=== PATIENT | female | born 1990 | race Caucasian/White ===

== ENCOUNTER 2020-08-14 17:34 | Emergency (ER) | payer MEDICAID ==
[~2020-08-14] VITALS: Ht 167.6 cm; Wt 73.0 kg
[2020-08-14 19:57] LABS: BASOPHILS % 0.7 % (0.0-2.0); EOSINOPHILS % 1.7 % (0.0-5.0); HEMATOCRIT. 35.2 % (36.0-48.0); HEMOGLOBIN. 11.6 g/dL (12.0-16.0); LYMPHOCYTES % 37.8 % (20.0-50.0); MEAN CORPUSCULAR HEMOGLOBIN 28.3 pg (28.0-32.0); MEAN CORPUSCULAR VOLUME 85.4 fL (81.0-99.0); MEAN PLATELET VOLUME 7.6 fl (7.4-10.4); NEUTROPHILS % 54.8 % (40.0-76.0); PLATELET 285 x1000/uL (130-400); RED BLOOD CELL COUNT 4.12 mill/uL (4.2-5.4); RED CELL DISTRIBUTION WIDTH 13.3 % (11.6-14.6)
[2020-08-14 19:59] LABS: CHLORIDE 108 mEq/L (98-107)
[2020-08-14] MEDS ORDERED: KCL 10MEQ/50ML PREMIX 50 ML IV ONE (22:00)
[2020-08-14] MEDS ORDERED: POTASSIUM CHLORIDE 20MEQ/PACKET PO ONE (22:00)
[2020-08-14] MEDS ORDERED: IOHEXOL-350 100 ML BOTTLE ONE (22:58)
[2020-08-14 23:20] VITALS: BP 131/78
== END 2020-08-14 23:58 | disposition home or self-care (01) ==
LOC: ER 17:34
DX: R06.02 Shortness of breath (principal); E87.6 Hypokalemia; Z88.1 Allergy status to other antibiotic agents; Z98.890 Other specified postprocedural states
CPT/HCPCS: 36415; 71045; 71275; 80053; 81025; 83880; 84484; 85025; 93005; 96365; 99285; J3480; Q9967

== ENCOUNTER 2021-06-04 03:21 | Emergency (ER) | payer MEDICAID ==
[~2021-06-04] VITALS: Ht 167.6 cm; Wt 87.0 kg
[2021-06-04] MEDS ORDERED: KETOROLAC 30MG/ML VIAL IM ONE (04:00)
[2021-06-04] MEDS ORDERED: CYCL5TAB MT (04:40)
[2021-06-04] MEDS ORDERED: NAP5EC MT (04:40)
[2021-06-04] MEDS ORDERED: LIDO700A15 TP (04:40)
[2021-06-04 04:51] VITALS: BP 122/63
== END 2021-06-04 05:07 | disposition home or self-care (01) ==
LOC: ER 03:21
DX: M54.41 Lumbago with sciatica, right side (principal); Z88.1 Allergy status to other antibiotic agents
CPT/HCPCS: 96372; 99283; J1885

== ENCOUNTER 2021-06-06 16:03 | Emergency (ER) | payer MEDICAID, OTHER ==
[~2021-06-06] VITALS: Ht 160 cm; Wt 86.0 kg
[~2021-06-06 16:03] MED LIST: CYCL5TAB MT; LIDO700A15 TP; NAP5EC MT
[2021-06-06] MEDS ORDERED: IBUPROFEN 600MG TABLET PO ONE (18:45)
[2021-06-06] MEDS ORDERED: T3 PO (20:00)
[2021-06-06] MEDS ORDERED: IBUP-2029 MT (20:01)
[2021-06-06 20:59] VITALS: BP 125/86
== END 2021-06-06 21:17 | disposition home or self-care (01) ==
LOC: ER 16:03
DX: M25.571 Pain in right ankle and joints of right foot (principal); M54.30 Sciatica, unspecified side; Z88.1 Allergy status to other antibiotic agents
CPT/HCPCS: 73610; 99283